=== PATIENT | female | born 1960 | race Caucasian/White ===

== ENCOUNTER → 2017-01-07 | Outpatient (CLI) | payer BC ==
[2017-01-07 16:50] LABS: Basophils # (A) 0.1 k/uL (0-0.2); Basophils % (A) 1 %; CH 27.3; CHCM 32.8; Eosinophils # (A) 0.2 k/uL (0-0.7); Eosinophils % (A) 3 %; HCT 42.1 % (34.0-46.0); HDW 2.82; HGB 14.2 gm/dL (11.4-16.0); Luc # (Auto) 0.22; Luc % (Auto) 2; Lymphocytes # (A) 2.1 k/uL (1.0-4.8); Lymphocytes % (A) 22 %; MCH 28.2 pg (25.0-35.0); MCHC 33.8 g/dL (31.0-37.0); MCV 83.6 fL (80.0-100.0); Mean Platelet Volume 7.6; Monocytes # (A) 0.6 k/uL (0-1.0); Monocytes % (A) 7 %; Neutrophils # (A) 6.1 k/uL (1.3-7.7); Neutrophils % (A) 66 %; RBC 5.04 m/uL (3.80-5.40); RDW 13.6 % (11.5-15.5); WBC 9.3 k/uL (3.8-10.6); WBC (Perox) 9.35
== END | disposition home or self-care (01) ==
LOC: LABPAT 16:05
PROVIDERS: ATTEND Obstetrics & Gynecology Obstetrics
DX: Z01.810 Encounter for preprocedural cardiovascular examination (principal); I10 Essential (primary) hypertension; N95.0 Postmenopausal bleeding; R93.8 Abnormal findings on diagnostic imaging of other specified body structures; Z01.812 Encounter for preprocedural laboratory examination
CPT/HCPCS: 85025; 93005

== ENCOUNTER 2017-01-27 10:27 | Day surgery (SDC) | payer BC ==
[2017-01-22 10:38] VITALS: BMI 33.2
--- NOTE | 2017-01-24 11:34 | P.HPIHPCON ---
History of Present Illness H&P Date: 01/24/17 Chief Complaint: thickend enodmetrium on US, insufficient EMB, PMB this is a 56yo with LMP 05/2011 that presents with c/o VB. she states the bleeding began months ago and has been light in nature. she is needing to wear a pad daily and notes the blood to be bright red in nature. no bowel or bladder concerns. Consent for Procedure: I have explained the operation/procedure to the patient, including the risks, benefits, side effects, alternative therapies (including not receiving the proposed treatment or service), the likelihood of the patient achieving his/her goals, and potential recuperation problems for the procedure/sedation/analgesia , as well as any blood products, if indicated. I also explained to the patient the risks, benefits and side effects of the alternatives, as well as the risks related to not receiving the proposed procedure, care, treatment, or services. - Constitutional Constitutional: Denies fatigue - Cardiovascular Cardiovascular: Reports high blood pressure - Gastrointestinal Gastrointestinal: Denies constipation, Denies diarrhea - Menstruation Menstruation: Reports postmenopausal Past Medical History Past Medical History: Cancer, GERD/Reflux, Hyperlipidemia, Hypertension, Thyroid Disorder Additional Past Medical History / Comment(s): thyroid cancer, occ. migraines, recent sinus infection-rx with antibiotics, abnormal vaginal bleeding History of Any Multi-Drug Resistant Organisms: None Reported Past Surgical History: Section Additional Past Surgical History / Comment(s): SKIN CA REMOVED, THYROIDECTOMY Past Anesthesia/Blood Transfusion Reactions: No Reported Reaction Additional Past Anesthesia/Blood Transfusion Reaction / Comment(s): . Smoking Status: Never smoker - Past Family History Brother(s) Family Medical History: Cancer Additional Family Medical History / Comment(s): stomach Father Family Medical History: Cancer Additional Family Medical History / Comment(s): STOMACH. Mother Family Medical History: Cancer Additional Family Medical History / Comment(s): . Medications and Allergies Home Medications Medication Instructions Recorded Confirmed Type Furosemide [Furosemide] 20 mg PO DAILY PRN 03/16/14 01/22/17 History Losartan Potassium [Losartan 100 mg PO HS 03/16/14 01/22/17 History Potassium] Metoprolol Succinate [Toprol XL] 100 mg PO HS 03/16/14 01/22/17 History Pantoprazole Sodium [Protonix] 40 mg PO BID 03/16/14 01/22/17 History Simvastatin [Simvastatin] 20 mg PO DAILY 03/16/14 01/22/17 History Levothyroxine Sodium [Synthroid] 100 mcg PO DAILY 01/08/17 01/22/17 History Allergies Allergy/AdvReac Type Severity Reaction Status Date / Time codeine AdvReac Nausea & Verified 01/22/17 10:33 Vomiting Surgical - Exam Osteopathic Statement: *. No significant issues noted on an osteopathic structural exam other than those noted in the History and Physical/Consult. - General well nourished, no distress - Respiratory clear to auscultation - Cardiovascular Rhythm: regular - Abdomen Abdomen: soft, non tender - Genitourinary normal external genitalia Assessment and Plan (1) Thickened endometrium Narrative/Plan: Plan for H DC given the insufficient sample on endometrial biospy. surgery reviewed in detail and questions answered. Status: Acute (2) PMB (postmenopausal bleeding) Status: Acute
[~2017-01-27 10:27] MED LIST: DEXAMETHASONE SOD PHOSPHATE 10 MG/ML 1 ML VIAL IV ONE; HYDROmorphone 1 MG/ML 1 ML SYRINGE IVP PRN; LACTATED RINGERS 1,000 ML IV SCH; LIDOCAINE 1% 20 ML VIAL (10MG/ML) FOR IV START INTRADERMA PRN; MIDAZOLAM 2 MG/2 ML VIAL IV PRN; ONDANSETRON 4 MG/2 ML VIAL IVP ONE; Pre Op ABX Message 1 EACH MISC MISCELLANE ONE; SCOPOLAMINE 1.5MG/72HR PATCH TRANSDERM ONE
[2017-01-27] MEDS ORDERED: LACTATED RINGERS 1,000 ML IV ONE (11:13)
[2017-01-27] MEDS ORDERED: LIDOCAINE 1% INJ 10MG/ML (20 ML MDV) ONE (11:40)
[2017-01-27] MEDS ORDERED: fentaNYL (PF) 50 MCG/ML 2 ML AMP ONE (11:40)
[2017-01-27] MEDS ORDERED: MIDAZOLAM 2 MG/2 ML VIAL ONE (11:40)
[2017-01-27] MEDS ORDERED: KETOROLAC 30 MG/ML 1 ML VIAL ONE (11:40)
[2017-01-27] MEDS ORDERED: PROPOFOL 10 MG/ML 20 ML VIAL IV ONE (11:40)
[2017-01-27] MEDS ORDERED: FUROSEMIDE 20 MG PO PRN (12:03)
[2017-01-27] MEDS ORDERED: HYDROcodone/APAP 5-325MG 1 EACH TAB PO PRN (12:05)
--- NOTE | 2017-01-27 12:09 | P.OP ---
Date of Procedure: 01/27/17 Preoperative Diagnosis: Thickened endometrium, postmenopausal bleeding Postoperative Diagnosis: Same Procedure(s) Performed: Hysteroscopy, dilation and curettage Anesthesia: MAC Surgeon: Cira Hoffmann Estimated Blood Loss (ml): 5 IV fluids (ml): 400 Urine output (ml): 50 Pathology: other (Endometrial curettings) Condition: stable Disposition: PACU Indications for Procedure: Postmenopausal bleeding insufficient sample in office Operative Findings: Thickened proliferative endometrium with follow-up vascularity noted on follow- up. Intact cavity measuring 7 cm noted Description of Procedure: Patient was seen in the operating room where general anesthesia was obtained without difficulty by the anesthesia department. She was then prepped and draped in the normal sterile fashion in the dorsolithotomy position. A weighted speculumin the posterior vaginal vault and the anterior lip of the cervix cervix was visualized grasped with a single-tooth tenaculum. Prior to this irregular catheter was used to drain the bladder clear yellow urine. The cervical canal was then dilated to 15-Lao, and a hysteroscope was placed through the cervix with the above-noted findings. Sharp curettage was then performed until a gritty texture was noted in all 4 quadrants of the uterine cavity. The single-tooth tenaculum was taken off of the anterior lip of the cervix hemostasis was appreciated. All counts were correct 2 patient was to the recovery room awake and in stable condition.
[2017-01-27 12:14] VITALS: TEMP 97
[2017-01-27 13:24] VITALS: RESP 18
[2017-01-27 14:03] VITALS: BP 118/69; PULSE 58
[2017-01-27] MEDS ORDERED: METOPROLOL SUCCINATE 100 MG PO SCH (21:00)
[2017-01-27] MEDS ORDERED: PANTOPRAZOLE SODIUM 40 MG PO SCH (21:00)
[2017-01-27] MEDS ORDERED: NON-FORMULARY DRUG (Losartan Potassium [Losartan Potassium] 100 MG) PO SCH (21:00)
[2017-01-28] MEDS ORDERED: NON-FORMULARY DRUG (Simvastatin [Simvastatin] 20 MG) PO SCH (09:00)
[2017-01-28] MEDS ORDERED: LEVOTHYROXINE SODIUM 100 MCG PO SCH (09:00)
== END 2017-01-27 14:09 | disposition home or self-care (01) ==
LOC: OR 10:27
PROVIDERS: ATTEND Obstetrics & Gynecology Obstetrics
DX: N95.0 Postmenopausal bleeding (principal); N85.00 Endometrial hyperplasia, unspecified; I10 Essential (primary) hypertension; E78.5 Hyperlipidemia, unspecified; E07.9 Disorder of thyroid, unspecified; K21.9 Gastro-esophageal reflux disease without esophagitis; Z79.899 Other long term (current) drug therapy; Z88.5 Allergy status to narcotic agent
CPT/HCPCS: 88305; 58558; J2250; J1100; J2405; J2001; J3010; J1885; J2704

== ENCOUNTER → 2018-10-19 | Outpatient (CLI) | payer BC ==
--- NOTE | 2018-10-20 08:08 | MM ---
Reason for exam: screening (asymptomatic). Last mammogram was performed 3 years and 1 month ago. History: Patient is postmenopausal and has history of other cancer at age 38. Physical Findings: A clinical breast exam by your physician is recommended on an annual basis and results should be correlated with mammographic findings. MG Screening Mammo w CAD Bilateral CC and MLO view(s) were taken. Prior study comparison: September 07, 2015, bilateral MG screening mammo w CAD. January 31, 2014, bilateral MG screening mammo w CAD. The breast tissue is heterogeneously dense. This may lower the sensitivity of mammography. No significant changes when compared with prior studies. ASSESSMENT: Negative, BI-RAD 1 RECOMMENDATION: Routine screening mammogram of both breasts in 1 year.
== END | disposition home or self-care (01) ==
LOC: RADMAMWWP 07:00
PROVIDERS: ATTEND Obstetrics & Gynecology Obstetrics
DX: Z12.31 Encounter for screening mammogram for malignant neoplasm of breast (principal)
CPT/HCPCS: 77067

== ENCOUNTER → 2021-01-05 | Outpatient (CLI) | payer BC ==
--- NOTE | 2021-01-09 09:53 | MM ---
Reason for exam: screening (asymptomatic). Last mammogram was performed 2 years and 3 months ago. History: Patient is postmenopausal and has history of other cancer at age 38. Physical Findings: A clinical breast exam by your physician is recommended on an annual basis and results should be correlated with mammographic findings. MG Screening Mammo w CAD Bilateral CC and MLO view(s) were taken. Prior study comparison: October 19, 2018, bilateral MG screening mammo w CAD. September 07, 2015, bilateral MG screening mammo w CAD. January 31, 2014, bilateral MG screening mammo w CAD. The breast tissue is heterogeneously dense. This may lower the sensitivity of mammography. There is no discrete abnormality. ASSESSMENT: Negative, BI-RAD 1 RECOMMENDATION: Routine screening mammogram of both breasts in 1 year.
== END | disposition home or self-care (01) ==
LOC: RADMAMWWP 07:11
PROVIDERS: ATTEND Obstetrics & Gynecology Obstetrics
DX: Z12.31 Encounter for screening mammogram for malignant neoplasm of breast (principal)
CPT/HCPCS: 77067

== ENCOUNTER → 2023-05-08 | Outpatient (CLI) | payer BC ==
--- NOTE | 2023-05-09 11:12 | CA ---
Exercise Stress Test Report Name: Arcelia Harrell Exam Date: 05/08/2023 11:04 Exam Location: [place] Stress Ht (in): 60 Wt (lb): 155 BSA: 1.67 Ordering Phys: Rosalee Bloom Referring Phys: Rosalee Bloom Technologist: Lori Corado Age: 63 Gender: F : 1960 Procedure CPT: Indications: ICD-10 Codes: Patient History: HTN, ?CHOL Medications: SYNTHROID,,,,,, OMEPRAZOLE,,,,,, TOPOROL,,,,,, WATER PILL,,,,,, COZAAR,,,,, Meds past 24 hrs: Pretest Chest Pain: STRESS TEST Braxton Protocol Exercise Duration (min:sec): 09:[address] Depressions (mm): Angina Score: Roberts Score: Resting HR (bpm): 72 Peak HR (bpm): 135 Resting BP (mmHg): 150 / 98 Peak BP (mmHg): 194 / 75 MPHR: 156 Target HR: 133 % MPHR: 87 METS: 10.3 Total Dose: Peak Dose: Atropine: Double Product: 99940 BP Response: Stress Termination: Reached target heart rate Stress Symptoms: No chest pain or symptoms Stress Summary: ECG ANALYSIS Resting ECG: Stress ECG: CONCLUSIONS Baseline EKG revealed sinus mechanism with nonspecific T wave/. Patient walked on a standard Braxton protocol for 9 minutes and achieved a maximum heart rate of 135 bpm. She did not have any anginal symptoms. Patient had 8 peak exercise isolated PVCs and one 3 beat run of PVCs a row no associated symptoms. EKG revealed nonspecific ST segment changes at peak exercise however resting EKG was abnormal to begin with making is an inconclusive stress test. Given the fact there were PVCs and nonspecific changes I would recommend a pharmacological stress test or a stress echocardiogram to get a better assessment of ischemia. This is an inconclusive stress test with fair exercise capacity Dr. Nato Tilley MD (Electronically Signed) Final Date: 08 May 2023 11:52
== END | disposition home or self-care (01) ==
LOC: RADNMMAIN 10:22
PROVIDERS: ATTEND Family Medicine
DX: I49.3 Ventricular premature depolarization (principal); R94.31 Abnormal electrocardiogram [ECG] [EKG]
CPT/HCPCS: 93017

== ENCOUNTER → 2023-12-19 | Outpatient (CLI) | payer BC ==
--- NOTE | 2024-01-08 20:49 | MM ---
Reason for Exam: Screening (asymptomatic). Last mammogram was performed 2 year(s) and 11 month(s) ago. Patient History: Menarche at age 10. First Full-Term at age 25. Postmenopausal. Other cancer, age 38. Risk Values: Kassie 5 year model risk: 2.0%. NCI Lifetime model risk: 7.9%. Prior Study Comparison: 09/07/2015 Bilateral Screening Mammogram, [facility]. 10/19/2018 Bilateral Screening Mammogram, [facility]. 01/05/2021 Bilateral Screening Mammogram, [facility]. Tissue Density: The breasts are heterogeneously dense, which may obscure small masses. Findings: Analyzed By CAD. Areas of asymmetric density and benign bilateral oil cyst calcifications are unchanged. There is no suspicious group of microcalcifications or new suspicious mass in either breast. Overall Assessment: Benign, BI-RAD 2 Management: Screening Mammogram of both breasts in 1 year. . Patient should continue monthly self-breast exams. A clinical breast exam by your physician is recommended on an annual basis. This exam should not preclude additional follow-up of suspicious palpable abnormalities. Note on Kassie scores and lifetime risk: 1. A Kassie score greater than 3% is considered moderate risk. If this is the case, consider specialist referral to assess eligibility for a risk reducing agent. 2. If overall lifetime risk for the development of breast cancer is 20% or higher, the patient may qualify for future screening with alternating mammogram and breast MRI. Electronically signed and approved by: Eleazar Peña M.D. Radiologist
== END | disposition home or self-care (01) ==
LOC: RADMAMWWP 13:25
PROVIDERS: ATTEND Nurse Practitioner Family
DX: Z12.31 Encounter for screening mammogram for malignant neoplasm of breast
CPT/HCPCS: 77067